=== PATIENT | female | born 1945 | race Caucasian/White ===

== ENCOUNTER → 2022-01-14 | Outpatient (CLI) | payer MEDICARE, OTHER ==
[~2022-01-14] MED LIST: AMLODIPINE BESYL5 MG PO; MELOXICAM15 MG PO; OXYCODON-ACETA1 EAC1 PO
== END ==
LOC: NM 08:45 → HEART 5 09:00 → NM 09:00
DX: Z01.810 Encounter for preprocedural cardiovascular examination (principal); Z79.899 Other long term (current) drug therapy
CPT/HCPCS: 78452; 93017; A9502; J2785

== ENCOUNTER → 2022-01-20 | Outpatient (CLI) | payer MEDICARE, OTHER ==
[~2022-01-20] MED LIST changes: +ASPIRIN81 MG PO; +CYCLOBENZAPRINE10 MG PO; +ELIQUIS2.5 MG PO; -OXYCODON-ACETA1 EAC1 PO; +PERCOCET 10-321 EACH PO; +ZOFRAN ODT 4 MG4 MG PO
[2022-01-20 12:32] LABS: BUN/CREATININE RATIO 25 (0-10)
== END ==
LOC: LAB 11:22
PROVIDERS: Orthopaedic Surgery
DX: Z01.812 Encounter for preprocedural laboratory examination (principal)
CPT/HCPCS: 36415; 80048; 86850; 86900; 86901

== ENCOUNTER 2022-01-21 05:19 | Day surgery (SDC) | payer MEDICARE, OTHER ==
[~2022-01-21] VITALS: Ht 167.6 cm; Wt 93.4 kg
[~2022-01-21 05:19] MED LIST changes: -ASPIRIN81 MG PO; -CYCLOBENZAPRINE10 MG PO; -ELIQUIS2.5 MG PO; -ZOFRAN ODT 4 MG4 MG PO
[2022-01-21] MEDS ORDERED: CYCLOBENZAPRINE10 MG PO (08:32)
[2022-01-21] MEDS ORDERED: ASPIRIN81 MG PO (08:33)
[2022-01-21] MEDS ORDERED: ZOFRAN ODT 4 MG4 MG PO (08:33)
[2022-01-21 19:35] LABS: HEMOGLOBIN 12.5 gm/dl (12.3-15.3); RED BLOOD COUNT 4.25 M/UL (4.00-5.10); WHITE BLOOD COUNT 16.8 K/UL (4.5-11.0)
[2022-01-22 04:10] LABS: HEMOGLOBIN 12.1 gm/dl (12.3-15.3); RED BLOOD COUNT 4.08 M/UL (4.00-5.10); WHITE BLOOD COUNT 14.7 K/UL (4.5-11.0)
[2022-01-22 04:27] LABS: BUN/CREATININE RATIO 22 (0-10)
[2022-01-22] MEDS ORDERED: ELIQUIS2.5 MG PO (11:38)
--- NOTE | 2022-01-22 13:58 | NUR ---
REPORT GIVEN TO [facility] AT [facility].
== END 2022-01-22 15:21 ==
LOC: OR 05:19 → CCU 10:45 → OR 01-22 15:21
PROVIDERS: Orthopaedic Surgery; Physician Assistant
DX: M17.11 Unilateral primary osteoarthritis, right knee (principal); M21.061 Valgus deformity, not elsewhere classified, right knee; I10 Essential (primary) hypertension; G89.18 Other acute postprocedural pain; D72.829 Elevated white blood cell count, unspecified; Z79.82 Long term (current) use of aspirin; Z79.899 Other long term (current) drug therapy
CPT/HCPCS: 36415; 73560; 80048; 81001; 85025; 85027; 87086; 97110-GP-CQ; 97116; 97116-GP-CQ; 97162; 97165; 97530; C1713; C1776; J0690; J1100; J1170; J1885; J2001; J2250; J2270; J2274; J2405; J2704; J2710; J2795; J3010; J3370

== ENCOUNTER → 2022-01-24 | Emergency (ER) | payer MEDICARE, OTHER ==
[~2022-01-24] MED LIST changes: +ASPIRIN81 MG PO; +CYCLOBENZAPRINE10 MG PO; +ELIQUIS2.5 MG PO; +ZOFRAN ODT 4 MG4 MG PO
[2022-01-24 16:08] LABS: HEMOGLOBIN 12.3 gm/dl (12.3-15.3); RED BLOOD COUNT 4.15 M/UL (4.00-5.10); WHITE BLOOD COUNT 12.1 K/UL (4.5-11.0)
[2022-01-24 16:34] LABS: BUN/CREATININE RATIO 31 (0-10)
[2022-01-24 22:36] LABS: HEMOGLOBIN 11.4 gm/dl (12.3-15.3)
== END | disposition home or self-care (01) ==
LOC: ER1 15:17
PROVIDERS: Student in an Organized Health Care Education/Training Program
DX: K92.0 Hematemesis (principal); K56.609 Unspecified intestinal obstruction, unspecified as to partial versus complete obstruction; I10 Essential (primary) hypertension; Z20.822 Contact with and (suspected) exposure to COVID-19
CPT/HCPCS: 43752; 71045; 80053; 82962; 85014; 85018; 85025; 85610; 85730; 86850; 86900; 86901; 93005; 96361; 96372; 96374; 96375; 99285; C9113; J1170; J1630; J2060; J2405; J2550; J3486; J7040; Q9967; U0002